=== PATIENT | male | born 1985 | race Caucasian/White ===

== ENCOUNTER 2018-02-05 07:41 | Day surgery (SDC) | payer BC ==
[~2018-02-05] VITALS: Ht 172.7 cm; Wt 77.3 kg
[2018-02-05] MEDS ORDERED: IODIXANOL 320 MG/ML 50 ML VIAL (for RAD SPEC) OTHER ONE (07:42)
[2018-02-05 07:56] VITALS: BP 140/84; PULSE 50; RESP 20; TEMP 97.7; O2SAT 98
[2018-02-05] MEDS ORDERED: SODIUM CHLOR 0.9% 1000 ML INJ 1,000 ML IV SCH (08:15)
[2018-02-05 08:24] LABS: AUTOMATED NEUTROPHIL # 3.3 TH/MM3 (1.8-7.7); BASOPHIL % 0.4 % (0.0-2.0); EOSINOPHIL # 0.4 TH/MM3 (0-0.4); EOSINOPHIL % 6.2 % (0.0-4.0); HEMATOCRIT 44.5 % (39.0-51.0); HEMOGLOBIN 15.5 GM/DL (13.0-17.0); LYMPH % 35.2 % (9.0-44.0); LYMPHOCYTE # 2.3 TH/MM3 (1.0-4.8); MEAN CELL VOLUME 87.5 FL (80.0-100.0); MEAN CORPUSCULAR HEMOGLOBIN 30.4 PG (27.0-34.0); MEAN CORPUSCULAR HGB CONC 34.7 % (32.0-36.0); MONO % 8.4 % (0.0-8.0); MONOCYTE # 0.6 TH/MM3 (0-0.9); NEUT % 49.8 % (16.0-70.0); PLATELET COUNT 208 TH/MM3 (150-450); RED BLOOD COUNT 5.09 MIL/MM3 (4.50-5.90); RED CELL DISTRIBUTION WIDTH 12.7 % (11.6-17.2); WHITE BLOOD COUNT 6.6 TH/MM3 (4.0-11.0)
[2018-02-05 08:30] LABS: INTERNATIONAL NORMALIZED RATIO 1.1 RATIO; PROTHROMBIN TIME - PATIENT 11.4 SEC (9.8-11.6)
[2018-02-05 08:40] LABS: BICARBONATE 29.2 MEQ/L (21.0-32.0); CALCIUM 8.7 MG/DL (8.5-10.1); CREATININE 1.19 MG/DL (0.60-1.30)
[2018-02-05] MEDS ORDERED: MIDAZOLAM HCL 5 MG/5 ML VIAL ONE (09:02)
[2018-02-05] MEDS ORDERED: fentaNYL CITRATE 250 MCG/5 ML AMP ONE (09:02)
[2018-02-05] MEDS ORDERED: ceFAZolin 2 GM PREMIX 50 ML ONE (09:28)
[2018-02-05] MEDS ORDERED: IODIXANOL 320 MG/ML 50 ML VIAL (for RAD SPEC) I-ARTERIAL ONE (10:00)
[2018-02-05] MEDS ORDERED: GELATIN 12 MM/7 MM FOAM ONE (10:00)
--- NOTE | 2018-02-05 10:48 | PD.RAD ---
Post Procedure Progress Note Pre Procedure Diagnosis: (1) Left varicocele (2) Infertility male Post Procedure Diagnosis: (1) Infertility male (2) Left varicocele Procedure Date: Feb 05, 2018 Supervising Radiologist: Jero Bueno JR Proceduralist/Assist: Yeimi Gerard RT(R), Chantale Vásquez RT(R) Anesthesia: Conscious Sedation Plan of Activity Patient to Unit: ROPU Patient Condition: Good See PACS Report for procedural detail/treatment Vascular-Venous Procedure Procedure 1 Procedure Site: Abdominal Procedure(s): Embolization Access Access Site(s): Right Femoral Vein Findings: Simple left sided varicocele responded well to embolization. Plan F/U with Dr Cruz as previously arranged. Fill Percocet script only if needed. Jr. Myles,Jero Ruiz MD Feb 05, 2018 10:48
[2018-02-05 10:50] VITALS: BP 114/69; PULSE 45; RESP 18; TEMP 97.7; O2SAT 97
[2018-02-05 11:05] VITALS: BP 108/64; PULSE 44; RESP 16; O2SAT 94
[2018-02-05 11:35] VITALS: BP 105/62; PULSE 60; RESP 16; O2SAT 96
[2018-02-05 12:05] VITALS: BP 108/64; PULSE 44; RESP 16; O2SAT 94
[2018-02-05 12:07] VITALS: BP 117/68; PULSE 55; RESP 16; O2SAT 99
--- NOTE | 2018-02-05 14:18 | RADRPT ---
EXAM DATE/TIME: 02/05/2018 09:32 [facility] COMPARISON: No previous studies available for comparison. INDICATIONS : Patient with history of left varicocele in need of venogram with embolization. Infertility issues. MEDICAL HISTORY : None SURGICAL HISTORY : Left arm merrill surgery, Tonsillectomy ENCOUNTER: Initial ACUITY: > 1 year PAIN SCORE: 0/10 FLUORO TIME: 14 minutes IMAGE SERIES: 7 ACCESS SITE: Right Femoral vein SEDATION TIME: 60 minutes CONTRAST: 1.) 50 cc Visipaque (iodixanol) MEDICATION(S): 1.) 5 mg midazolam (Versed) IV 2.) 250 mcg fentanyl (Sublimaze) IV Prophylactic antibiotics were administered with appropriate pre-procedure timing. Vancomycin within 2 hrs of procedure, Ancef (or alternative) within 1 hr of procedure. DEVICE(S): 1.) Left Gonadal vein embolic coil(s) Tornado .035 4/3 2.) Left Gonadal vein embolic coil(s) Tornado .035 5/3 3.) Left Gonadal vein embolic coil(s) Tornado .035 6/3 X5 4.) Left Gonadal vein embolic coil(s) Tornado .035 7/3 X2 5.) Left Gonadal vein Gelfoam PROCEDURE : 1. Ultrasound-guided puncture of the right common femoral vein. 2. Conscious sedation with continuous EKG and Oximetry monitoring. 3. Venography of the left renal vein 4. Venography of the <<left gonadal vein> 5. Embolization of the left gonadal vein The risks, benefits and alternatives to the procedure were explained and verbal and written consent w as obtained. The site was prepped in sterile fashion. Full sterile technique was used, including ca p, mask, sterile gloves and gown and a large sterile sheet. Hand hygiene and 2% chlorhexidine and/or betadine/alcohol prep was utilized per protocol for cutaneous antisepsis. Sterile gel and sterile p robe cover were utilized for ultrasound guidance. The skin and subcutaneous tissues were infiltrated with local anesthetic solution. With ultrasound and fluoroscopic guidance the right common femoral vein was punctured and a vascular sheath was placed <<The left renal vein was selected and a venogram performed. The left renal vein is patent and withou t filling defects. Contrast refluxes inferiorly down the left gonadal vein. The left gonadal vein is dilated. The left gonadal vein was selected and a selective venogram performed with contrast coursing inferiorly into the left scrotum with large varicosities noted. A Berenstein catheter was utilized t o select the most inferior portion of the gonadal vein to the level of the pectineal line. From this level Gelfoam embolization was performed. This was followed by coil embolization of the distal gonada l vein utilizing a combination of Tornado style coils. Complete cessation of flow within the gonadal vein was observed. The catheter was then retracted to the portion of the gonadal vein just inferior t o the confluence of the left renal vein. A venogram shows no opacification of other venous structures that supply the gonadal vein or varicosities. Coil embolization was performed at this level as well with complete loss of flow through the gonadal vein. The left renal vein was then selected and a veno gram performed to highlight continued patency of the renal vein.>> The puncture site was closed with manual pressure and hemostasis was obtained. The patient tolerated the procedure well and there were no complications. Conscious sedation was performed with the prescribed dosages and duration as above in the presence of an independent trained radiology nurse to assist in the monitoring of the patient. EKG and oximetry remained stable throughout the procedure. CONCLUSION: Fairly simple left varicocele with successful embolization as detailed above. Jero Bueno Jr., MD on February 05, 2018 at 14:10 Board Certified Radiologist. This report was verified electronically.
== END 2018-02-05 13:25 | disposition home or self-care (01) ==
LOC: HROP 07:41 → HRIP 07:42 → HROP 13:25
DX: I86.1 Scrotal varices (principal); N46.9 Male infertility, unspecified; Z98.890 Other specified postprocedural states; Z51.81 Encounter for therapeutic drug level monitoring
CPT/HCPCS: 36012; 37241; 75774; 75831; 76937; 80048; 85025; 85610; 85730; 99152; 99153; C1769; C1887; C1894; J0690; J2250; J3010; J7030; Q9967